=== PATIENT | female | born 1965 | race Caucasian/White ===

== ENCOUNTER → 2017-08-09 | Outpatient (CLI) | payer OTHER | LOC: CIMAGING 11:03 | DX: Z12.31 Encounter for screening mammogram for malignant neoplasm of breast (principal) | CPT/HCPCS: G0202 ==

== ENCOUNTER 2019-04-07 14:44 | Observation (INO) | payer OTHER | END 2019-04-08 15:49 | disposition home or self-care (01) | LOC: CED 14:44 → CEDHOLD 19:21 → F2W 21:14 ==